=== PATIENT | female | born 1965 | race Two or more races ===

== ENCOUNTER → 2024-12-18 | Outpatient (CLI) | payer BC, SELFPAY ==
[2024-12-18 09:41] LABS: Glucose Estimated Average 120 mg/dL (80-131); Hemoglobin A1C 5.8 % Hgb (4.8-6.0)
[2024-12-18 09:47] LABS: Anion Gap 11 (7-16); BUN/Creatinine Ratio 16 Ratio (12-20); Blood Urea Nitrogen 14 mg/dL (9-23); Calcium 9.2 mg/dL (8.3-10.6); Carbon Dioxide 27.4 mMol/L (20.0-31.0); Cardiac Risk Estimate 3.5 RATIO (3.7-5.6); Chloride 103 mMol/L (98-107); Cholesterol 229 mg/dL (132-200); Creatinine (Component) 0.9 mg/dL (0.6-1.3); Glucose 111 mg/dL (74-106); HDL Cholesterol 66 mg/dL (40-60); LDL Cholesterol,Calculated 137 mg/dL (0-130); Osmolality,Calculated 282 (275-295); Potassium 4.1 mMol/L (3.4-5.1); Sodium 141 mMol/L (136-145); Triglycerides 131 mg/dL (30-150); eGFR > 60 See Note
== END | disposition home or self-care (01) ==
PROVIDERS: PCP Internal Medicine; Referring Provider Internal Medicine; Visit Provider Internal Medicine
DX: Z00.00 Encounter for general adult medical examination without abnormal findings (principal)
CPT/HCPCS: 36415; 80048; 80061; 83036; 84100

== ENCOUNTER → 2025-02-05 | Outpatient (CLI) | payer BC, SELFPAY ==
--- NOTE | 2025-02-05 12:40 | XR_ITS ---
Examination: Bone densitometry Date and time of exam:February 05, 2025 1302 hours INDICATIONS: Menopause age 51 vitamin D and calcium 17 years Technique: Lumbar spine and hip total bone mineralization values of an calculated. Peak reference and age match control results have been displayed. Findings: Lumbar spine total bone mineralization is1.066 gm/cm2. This is 0.2 standard deviations above peak reference. This is 1.5 standard deviations above age-matched controls. Hip total bone mineralization is 0.983 gm/cm2 This is 0.3 standard deviations above peak reference. This is 1.2 standard deviations above age-matched controls Impression: There is normal mineralization based on lumbar spine measurements. There is normal mineralization based on hip measurements Lumbar mineralization is decreased 2.1% compared with January 19, 2022 Hip mineralization is decreased 1.0% compared with January 19, 2022
== END | disposition home or self-care (01) ==
LOC: CDIM 12:32
PROVIDERS: PCP Internal Medicine; Referring Provider Internal Medicine; Visit Provider Internal Medicine
DX: M85.80 Other specified disorders of bone density and structure, unspecified site (principal); N95.1 Menopausal and female climacteric states
CPT/HCPCS: 77080

== ENCOUNTER 2025-07-27 13:38 | Emergency (ER) | payer BC, SELFPAY ==
[2025-07-27 14:02] VITALS: BP 121/84; PULSE 70; RESP 18; TEMP 36.8; O2SAT 98; BMI 26.6
--- NOTE | 2025-07-27 14:07 | EKG_ITS ---
[facility] Test Date: 2025-07-27 Pat Name: NORMA VELÁZQUEZ Department: Room: - Gender: Female [employer]: : [id number] Requested By: Kaushik Hou Order Number: [id number] Reading MD: Kaushik Hou Measurements Intervals [place] Rate: 65 P: 121 ID: [id number] QRS: -10 QRSD: 87 T: 74 QT: 392 QTc: 409 Interpretive Statements SINUS RHYTHM No previous ECG available for comparison /[email or web address]/[id number].pdf
--- NOTE | 2025-07-27 14:07 | XR_ITS ---
Examination: CT brain head without contrast. 2-D sagittal coronal reconstructions Date and time of exam: July 27, 2025, 1726 hours INDICATIONS: Onset dizziness blurred vision weakness beginning 2 weeks ago CTDI: vol (mGy): 46.5 DLP: (mGycm): 895 Technique: Multiple CT axial sections of the brain have been obtained, 5 mm slice thickness. Contrast has not been administered. 2-D sagittal, coronal reconstructions have been obtained Low dose protocols were performed. One or more of the following dose reduction techniques were used; automated exposure control, adjustment of the mA and/or KV according to patient size, use of iterative reconstruction technique. Findings: No significant ventricular enlargement. Intra-axial or extra-axial hemorrhage density is not seen. No mass effect or midline shift Basal cisterns are not remarkable. Fourth ventricle is midline. Cranial vault intact. Impression: Negative for acute hemorrhage, mass effect or midline shift If symptoms persist, as clinically warranted, consider brain MRI follow-up, stroke protocol
[2025-07-27 14:39] LABS: Basophils # (Auto) 0.1 Thou/mm3 (0.0-0.2); Basophils % (Auto) 1 % (0-2.5); Eosinophils # (Auto) 0.1 Thou/mm3 (0.0-0.5); Eosinophils % (Auto) 1 % (0-10); Hematocrit 39.1 % (36.0-46.0); Hemoglobin 12.9 g/dL (12.0-16.0); Immature Granulocytes Auto 0.01 Thou/mm3 (0.00-0.00); Lymphocytes # (Auto) 3.4 Thou/mm3 (1.0-4.8); Lymphocytes % (Auto) 40 % (10-50); Mean Corpuscular HGB Conc 33.0 g/dl (31.0-37.0); Mean Corpuscular Hemoglobin 31.2 pg (25.0-35.0); Mean Corpuscular Volume 95 fL (80-100); Monocytes # (Auto) 0.4 Thou/mm3 (0.0-0.8); Monocytes % (Auto) 4 % (0-12); Neutrophils # (Auto) 4.6 Thou/mm3 (1.8-7.7); Neutrophils % (Auto) 54 % (37-80); Nucleated Red Blood Cell # 0.00 Thou/mm3 (0.00-0.00); Nucleated Red Blood Cell % 0 /100 WBC (0); Platelet Count 365 Thou/mm3 (140-440); RDW Standard Deviation 46.5 fL (36.4-46.3); Red Blood Count 4.13 Miln/mm3 (4.00-5.20); White Blood Count 8.5 Thou/mm3 (3.6-11.0)
[2025-07-27 14:40] LABS: Lactate (Lactic Acid) 1.1 mMol/L (0.4-2.0)
[2025-07-27 14:58] LABS: Collection Type, Urine Clean Catch; RBC,Urine 0 /hpf (0-3); WBC,Urine 0 /hpf (0-5)
[2025-07-27 15:10] LABS: Bacteria,Urine Rare; Bilirubin,Urine Negative (Negative); Blood,Urine Negative (Negative); Clarity,Urine Clear (Clear/Hazy); Color,Urine Lt-Yellow (Lt Yel-Yel); Glucose, Urine Negative (Negative); Ketones,Urine Negative (Negative); Leukocyte Esterase,Urine Negative (Negative); Nitrite,Urine Negative (Negative); PH,Urine 6.5 (5.0-7.0); Protein,Urine Negative (Neg - Trace); Specific Gravity,Urine 1.012 (1.001-1.035); Squamous Epithelial Cell,Urine 1 /hpf (0-5); Urobilinogen,Urine Negative mg/dL (0.0-1.0)
[2025-07-27 15:13] LABS: Alanine Aminotransferase 11 U/L (10-49); Albumin, Serum 5.0 gm/dL (3.5-5.0); Albumin/Globulin Ratio 1.6 (1.2-2.2); Alkaline Phosphatase 88 U/L (46-116); Anion Gap 10 (7-16); Aspartate Amino Transferase 16 U/L (0-34); BUN/Creatinine Ratio 11 Ratio (12-20); Bilirubin,Total 0.4 mg/dL (0.3-1.2); Blood Urea Nitrogen 10 mg/dL (9-23); Calcium 9.8 mg/dL (8.3-10.6); Calcium (Corrected) 9.8 mg/dL (8.5-10.1); Carbon Dioxide 26.7 mMol/L (20.0-31.0); Chloride 105 mMol/L (98-107); Creatinine (Component) 0.9 mg/dL (0.6-1.3); Estimated Creatinine Clearance 67.1 mL/min (>60); Globulin 3.1 gm/dL (2.3-3.5); Glucose 95 mg/dL (74-106); LDH (Lactate Dehydrogenase) 180 U/L (120-246); Osmolality,Calculated 282 (275-295); Potassium 4.4 mMol/L (3.4-5.1); Sodium 142 mMol/L (136-145); Total Protein 8.1 gm/dL (5.7-8.2); Troponin I < 0.002 ng/mL (0.0-0.045); eGFR > 60 See Note
--- NOTE | 2025-07-27 18:44 | EDNOTE_ITS ---
ED Dizzyness RME/HPI General Chief Complaint: Dizziness Stated Complaint: DIZZY, PINS/NEEDLES IN BODY, VISION SHAKY, SOB Time Seen by Provider: 07/27/25 13:47 Arrival date/time: 07/27/25 13:38 This is a case of 60-year-old female with no medical history came in in the emergency room due to dizziness spinning in car after on and off for 2 weeks patient was already seen by the HEENT and everything were normal patient also have on and off headache denies any nausea vomiting denies any injury or trauma denies any blurring of vision denies any numbness weakness or tingling sensation persistence of the symptoms this patient decided to sought consult here in the emergency room Limitations: no limitations Related Data Previous Rx's ?Medication ?Instructions ?Recorded meclizine 25 mg tablet 25 mg PO QDAY PRN dizziness #20 07/27/25 tabs ondansetron 4 mg disintegrating 4 mg PO Q8H #20 tabs 1 tablet Allergies Allergy/AdvReac Type Severity Reaction Status Date / Time No Known Allergies Allergy Verified 07/27/25 13:41 Review of Systems Review of Systems Systems Reviewed: All systems reviewed, normal except as documented Past Medical History Social History SMOKING STATUS: Former smoker ED Exam General Limitations: Present no limitations General appearance: Present alert, in no apparent distress and other (Patient is awake alert oriented not in distress nontoxic looking well-hydrated well- nourished) Head Head exam: Present atraumatic, normocephalic and normal inspection Eye Eye exam: Present normal appearance, PERRL, EOMI and other (PERRL EOM intact normal conjunctiva no papilledema no hyphema) ENT ENT exam: Present normal exam, normal oropharynx, mucous membranes moist, mucous membranes dry, TM's normal bilaterally and other (HEENT exam is normal and unremarkable) Neck Neck exam: Present normal inspection, full ROM, trachea midline and other (Negative for meningeal sign); Absent tenderness, meningismus, lymphadenopathy or thyromegaly Chest Chest inspection: Present normal inspection and symmetric chest wall rise; Absent tenderness Respiratory Respiratory exam: Present normal lung sounds bilaterally; Absent respiratory distress, wheezes, stridor, accessory muscle use or prolonged expiratory phase Cardiovascular Cardiovascular exam: Present regular rate, normal rhythm and normal heart sounds; Absent bradycardia, tachycardia, irregular rhythm, systolic murmur or diastolic murmur Abdominal Exam Abdominal exam: Present soft and normal bowel sounds; Absent distention, tenderness, guarding, rebound, rigidity, diminished bowel sounds, hyperactive bowel sounds, hypoactive bowel sounds or organomegaly Extremities Exam Extremities exam: Present normal inspection and full ROM Back Exam Back exam: Present normal inspection and full ROM Neurological Exam Neurological exam: Present alert, oriented X3, CN II-XII intact, normal gait, reflexes normal and other (Awake alert oriented x 4 no focal deficit GCS 15/15 steady gait memory intact no slurring speech no facial droop motor or sensory reflex are all normal in all extremities negative Babinski); Absent motor sensory deficit Psychiatric Psychiatric exam: Present normal affect and normal mood Skin Skin exam: Present warm, dry, intact, normal color and other (Excellent skin turgor) Course Quality Measures none Orders Category Date Time Status EKG (ED ONLY) *Do not use* NOW Care 07/27/25 14:[address] head/brain wo con Stat Exams 07/27/25 14:07 Completed EKG (ED Only) Stat Exams 07/27/25 14:07 Draft CBC Stat Lab 07/27/25 14:22 Completed Comprehensive Metabolic Panel Stat Lab 07/27/25 14:22 Completed LDH (Lactate Dehydrogenase) Stat Lab 07/27/25 14:22 Completed Lactate (Lactic Acid) Stat Lab 07/27/25 14:22 Completed Troponin I Stat Lab 07/27/25 14:22 Completed Urinalysis Stat Lab 07/27/25 14:45 Completed Meclizine HCl [Antivert] Med 07/27/25 18:41 Discontinued 50 mg PO X1 ONE Ondansetron Odt [Zofran Odt] Med 07/27/25 18:41 Discontinued 4 mg PO X1 ONE Vital Signs Vital signs: Vital Signs Temperature 98.2 F 07/27/25 14:02 Pulse Rate 70 07/27/25 14:02 Respiratory Rate 18 07/27/25 14:02 Blood Pressure 121/84 07/27/25 14:02 Pulse Oximetry (%) 98 07/27/25 14:02 Oxygen Delivery Method Room Air 07/27/25 14:02 Oxygen saturation is 98% on room air Dizziness MDM Narrative MDM Narrative:: This is a case of 60-year-old female with no medical history came in in the emergency room due to dizziness spinning in car after on and off for 2 weeks patient was already seen by the HEENT and everything were normal patient also have on and off headache denies any nausea vomiting denies any injury or trauma denies any blurring of vision denies any numbness weakness or tingling sensation persistence of the symptoms this patient decided to sought consult here in the emergency room physical examination patient is awake alert oriented not in distress nontoxic looking well-hydrated well-nourished vital signs stable BP stable not tachycardic not tachypneic afebrile and nonhypoxic patient HEENT exam is normal and unremarkable excellent skin turgor negative for meningeal sign lungs sound is clear no crackles no rales no retraction no stridor heart normal rate regular rhythm no murmur neurological exam is normal awake alert oriented x 4 no focal deficit GCS 15/15 steady gait orthostatic BP was done by me and it is normal EKG showed sinus rhythm blood test showed no leukocytosis no anemia kidney liver function is normal no electrolyte imbalance troponin is negative urinalysis is negative CT scan of the head is also negative based on my physical examination and history patient has no cardiopulmonary pathology nor TIA or CVA patient dizziness is possibly due to benign positional vertigo patient will follow-up with PCP to be referred to a neurologist for dizziness and HEENT for possible vertigo for any worsening symptoms and emergent concern return precaution in the ER is advised Patient was discharged with comfortable condition walking with stable gait. Patient verbalized no further complains explained diagnosis and answered patient question. Patient is comfortable with the proposed management plan including the need to follow up with his/her primary care physician and any specialist if applicable Discussed patient for any urgent condition or worsening sx, He/She needed to go to emergency room immediately or call 911. Patient acknowledge the responsibility to follow up as instructed and to monitor her/his symptoms. For any persistence of the symptoms for more than 3-5 days return precaution a dvised. Discussed the result of the test and was given printed discharge instruction Patient data External records reviewed:: [facility] previous records Clinical information provided by:: patient Social determinants that could affect healthcare access:: none Patient has the following chronic illnesses:: None How is presenting disease/condition affected by chronic disease/condition?: no chronic disease Evaluation data The following diagnostics were reviewed and interpreted by me:: lab results, radiology exam(s) and EKG tracing(s) Lab and/or radiology exams considered but not ordered:: Reviewed Interpretation Summary: Reviewed Medications / Prescriptions Medications or Prescriptions considered but not ordered:: Given Medication administrations:: Medication Administration History Discontinued Medications Meclizine HCl (Meclizine Hcl 25 Mg Tablet) 50 mg PO X1 ONE Stop: 07/27/25 18:42 Ondansetron HCl (Ondansetron Odt 4 Mg Tabrap) 4 mg PO X1 ONE; Protocol Stop: 07/27/25 18:42 Given Consultations Consultation(s) initiated? (list below): No Diagnosis Dizziness Differential Diagnosis: benign paroxysmal positional vertigo and orthostatic hypotension Most likely diagnosis given after review of the tests above:: Dizziness vertigo Admission Indicated Admission indicated?: not indicated Explain why admission is indicated or not indicated:: Not indicated Admission Request Was there a request for admission?: No Admission Attestation Admission request attestation: Not indicated Disposition Plan Disposition Plan: Discharge Discharge Attestation Discharge Attestation: The patient and all family members were given an opportunity to ask questions and understood the discharge instructions. Discharge instructions specifically effects, indications for sooner follow up or return to the emergency department, and the expected course of current diagnosis. Patient condition: Stable Discharge Plan Plan Patient Disposition: HOME (Self Care) Patient condition on transfer: Stable Prescriptions/Referrals Prescriptions/Med Rec: New meclizine 25 mg tablet 25 mg PO QDAY PRN (Reason: dizziness) Qty: 20 0RF ondansetron 4 mg tablet,disintegrating 4 mg PO Q8H Qty: 20 0RF Referrals: No Primary/Family,Physician [Primary Care Provider] - In 1 week Problem List Clinical Impression: Dizziness Patient/Caregiver Discharge Instructions Education Materials: ED Dizziness, Uncertain Cause Additional Instructions: Follow-up with your primary care physician in 2 days for reevaluation worsening symptoms or any emergent concern call 911 or go to the nearest emergency room take your medication as directed increase water intake keep hydrated Pedialyte Gatorade for hydration follow-up with your primary care physician to be referred to neurologist for further evaluation and treatment of your dizziness fall precaution advsied Print Language: Cambodian Stand Alone Forms: Lorrie Award Info., Patient Portal Info Letter IMANI/BERNARDA Supervising Physician IMANI/BERNARDA Supervising Physician: Dr. Mckay
[2025-07-27] MEDS: MECLIZINE HCL 25 MG TABLET 50 MG PO (19:25)
[2025-07-27] MEDS: ONDANSETRON ODT 4 MG TABRAP PO (19:25)
[2025-07-27 19:27] VITALS: BP 137/65; PULSE 78; RESP 18; TEMP 36.7; O2SAT 99
== END 2025-07-27 19:28 | disposition home or self-care (01) ==
PROVIDERS: Nurse Practitioner Family; Emergency Provider Family Medicine
DX: R42 Dizziness and giddiness (principal); H53.8 Other visual disturbances; R53.1 Weakness
CPT/HCPCS: 36415; 70450; 80053; 81001; 83605; 83615; 84484; 85025; 93005; 99283; Q0162; A9270